=== PATIENT | male | born 1945 | race Caucasian/White ===

== ENCOUNTER 2024-02-28 12:23 | Outpatient (CLI) | payer MEDICARE, BC, SELFPAY ==
--- NOTE | ~2024-02-28 | PE_ITS ---
EXAMINATION: PET_PETPSMAST_PT DATE: 02/28/2024 15:20 INDICATION: Prostate cancer TECHNIQUE: 5.721 mCi of Locametz Ga-68([id number]) was administered i.v. Low dose computed charmaine ography (CT) images were acquired from the base of the brain to the base of the brain to the proximal thighs for attenuation correction and anatomic localization. Positron emission tomography (PET) imag es were acquired in the same distribution beginning 90 minutes after injection. Images including fuse d PET/CT images were reconstructed in axial, coronal, and sagittal planes. Automated exposure control technique was employed. The dose-length product was 1304.87mGy-cm. COMPARISON: None FINDINGS: Head/neck: Typical pattern of symmetric physiologic increased activity in the lacrimal, parotid and submandibula r glands as well as along the mucosa of the nasal and oral cavities, pharynx and hypopharynx. No path ologically enlarged cervical lymphadenopathy or suspicious foci of increased uptake in the visualized head or neck. Chest: There are scattered discoid atelectasis in the bilateral upper and lower lobes and in the lingula. No suspicious pulmonary nodules, pneumonia, pulmonary edema or pleural effusion. Heart size is normal. Atherosclerotic coronary artery calcific lesions. No pericardial effusion. Thoracic aorta is normal i n caliber. No pathologically enlarged or PSMA avid thoracic lymphadenopathy. Abdomen/pelvis/proximal thighs: Small sliding-type hiatal hernia with change of prior Elisabet fundoplication. There are some stranding in the surrounding fat suggestive of gastritis and/or distal esophagitis. Physiologic renal accumula tion and excretion of activity in the kidneys, bladder and along portions of ureters. 4.5 cm exophyti c low-attenuation photopenic cyst at the lower pole the right kidney. Normal degree and slightly hete rogenous pattern of increased uptake throughout the liver and spleen without radiologic correlate or dominant PSMA avid lesion. The gallbladder, pancreas and bilateral adrenal glands are normal. Moderat e uptake scattered throughout the bowels with typical duodenal and proximal jejunal predominance and without radiologic correlate, also likely physiologic. There is a small region of increased PSMA upta ke with maximal SUV of 14.9 at the expected region of the posterior prostate. Evaluation on CT is how ever limited by dense metallic streak artifact in this location resulting from bilateral total hip ar throplasties. There are appendicoliths within the appendix without periappendiceal inflammatory stran ding to suggest acute appendicitis. There are 6 PSMA avid lymph nodes measuring between 5 mm with max imal SUV of 10.2 and 10 mm with maximal SUV of 25.9 in the fat situated between the proximal bilatera l external and internal iliac arteries. These appear more central than expected for retroperitoneal l ymph nodes and are more likely along the inferior mesenteric chain. Small left and moderate-sized rig ht inguinal hernias. No other abnormal foci of increased uptake or pathologically enlarged lymphadeno eder in the abdomen, pelvis or proximal thighs. Musculoskeletal: There is also a left shoulder arthroplasty. Severe cervical, thoracic and lumbar spondylosis. There a re no suspicious lytic, blastic or PSMA avid bone lesions. IMPRESSION: 1. The region of the prostate is obscured on CT imaging however there is a focus of increased uptake in the region of the posterior prostate which likely represents the primary prostate cancer. 2. There are six 5-10 mm PSMA avid lymph nodes in the central pelvis consistent with metastatic disea se likely along the inferior mesenteric chain. Reviewed, dictated and finalized at location A.
== END 2024-02-28 12:24 | disposition home or self-care (01) ==
LOC: ANHIMG 12:25
PROVIDERS: PCP Internal Medicine Infectious Disease; Visit Provider Urology
DX: C61 Malignant neoplasm of prostate (principal)
CPT/HCPCS: 78815; A9596